=== PATIENT | female | born 1955 | race Two or more races ===

== ENCOUNTER → 2017-10-26 | Outpatient (CLI) | payer MEDICARE, MEDICAID ==
[~2017-10-26] MED LIST: DOXY-216 PO; LEUCOVORIN; LEVO500T21 PO; MOBIC; MYLAN; NEXIUM; PREDPOW63; SACC250C PO; TEVA
== END | disposition home or self-care (01) ==
LOC: LAB 15:49
PROVIDERS: ATTEND Internal Medicine
DX: M34.9 Systemic sclerosis, unspecified (principal)
CPT/HCPCS: 87077; 87186; 87205

== ENCOUNTER → 2018-01-02 | Outpatient (CLI) | payer MEDICARE, MEDICAID | END | disposition home or self-care (01) | LOC: LAB 16:26 | PROVIDERS: ATTEND Internal Medicine | DX: L03.119 Cellulitis of unspecified part of limb (principal) | CPT/HCPCS: 87070; 87077; 87186 ==

== ENCOUNTER → 2019-06-18 | Outpatient (CLI) | payer MEDICARE, MEDICAID ==
[~2019-06-18] MED LIST changes: +ACET80CH; +CLIN300C8 PO; +DEXT1SUS PO; +DOCU-94 PO; -DOXY-216 PO; +HYDR-4833 PO; -LEUCOVORIN; -LEVO500T21 PO; +LORA0.5T11; +MELO1TAB73 PO; -MOBIC; +MULT-205; -MYLAN; +NEBI10TA2; -NEXIUM; +OYST500T29; +PANT40TA2 PO; +PANTOPRAZOLE; +PRE5T PO; -PREDPOW63; +PROMETHAZINE; -TEVA
== END | disposition home or self-care (01) ==
LOC: LAB 10:23
PROVIDERS: ATTEND Internal Medicine
DX: L03.90 Cellulitis, unspecified (principal); L89.109 Pressure ulcer of unspecified part of back, unspecified stage
CPT/HCPCS: 87205